=== PATIENT | female | born 1970 | race Caucasian/White ===

== ENCOUNTER → 2020-11-06 | Outpatient (CLI) | payer OTHER | LOC: LAB 11:29 | PROVIDERS: ATTEND Orthopaedic Surgery Sports Medicine | DX: Z01.812 Encounter for preprocedural laboratory examination (principal); Z20.822 Contact with and (suspected) exposure to COVID-19 ==

== ENCOUNTER 2020-11-08 07:49 | Day surgery (SDC) | payer OTHER ==
[~2020-11-08] VITALS: Ht 177.8 cm; Wt 93.0 kg
--- NOTE | 2020-11-08 09:20 | EKG ---
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 11/08/20919 2 2 Elijah Deluna MD, FACC /EPI
[2020-11-08 09:39] VITALS: BP 194/112
== END 2020-11-08 09:39 | disposition home or self-care (01) ==
LOC: OR 07:49 → TBA 07:50 → OR 09:12
PROVIDERS: ATTEND Orthopaedic Surgery Sports Medicine
DX: M25.551 Pain in right hip (principal); Z53.8 Procedure and treatment not carried out for other reasons; K21.9 Gastro-esophageal reflux disease without esophagitis; Z87.442 Personal history of urinary calculi; Z90.49 Acquired absence of other specified parts of digestive tract; Z98.890 Other specified postprocedural states; Z79.899 Other long term (current) drug therapy

== ENCOUNTER → 2021-01-11 | Outpatient (CLI) | payer OTHER ==
[~2021-01-11] MED LIST: ADVIL200 M1 PO; HYDROCHLOROTHIA25 M1 PO; PAROXETINE HCL20 MG PO; TYLENOL325 M1 PO
== END ==
LOC: LAB 09:36
PROVIDERS: ATTEND Orthopaedic Surgery Sports Medicine
DX: Z01.812 Encounter for preprocedural laboratory examination (principal); Z20.822 Contact with and (suspected) exposure to COVID-19

== ENCOUNTER → 2021-01-15 | Day surgery (SDC) | payer OTHER ==
[~2021-01-15] VITALS: Ht 175.3 cm; Wt 103.4 kg
[2021-01-15 11:20] LABS: CALCIUM 9.6 mg/dL (8.5-10.1); CREATININE 1.1 mg/dL (0.6-1.0); POTASSIUM 3.5 mmol/L (3.5-5.1)
[2021-01-15 11:53] VITALS: BP 161/102
--- NOTE | 2021-01-17 07:24 | O ---
[facility] [place] [address] OPERATIVE REPORT Name: PANKAJ EGAN Dillon Room #: REG [facility].#: [id number] Admission: 01/15/21 Attend Phys: Mikal Garcia MD Discharge: Date of : 70 Report #: [id number] THIS REPORT FOR: cc: Park Carmen Mischelle RNP McCabe, Michael P. MD ~ DATE OF SERVICE: 01/15/2021 SERVICE: Orthopedics. FACILITY: [facility]. SURGEON: Mikal Garcia MD STORE HAND: Zora Wood NP. INDICATION FOR STORE HAND: Extremity positioning, suture management, arthroscope management, assistance with repair. PREOPERATIVE DIAGNOSES: 1. Work-related injury to right hip. 2. Right hip labral tear (secondary to work-related injury). 3. Symptomatic right hip impingement (secondary to above work-related injury). 4. 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 POSTOPERATIVE DIAGNOSES: 1. Work-related injury to right hip. 2. Right hip labral tear (secondary to work-related injury). 3. Symptomatic right hip impingement (secondary to above work-related injury). 4. 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 PROCEDURES: 1. Right hip arthroscopic labral repair. 2. Right hip arthroscopic Cam osteochondroplasty. 3. Right hip arthroscopic subspine decompression. 4. Right hip arthroscopic chondroplasty. COMPLICATIONS: None. DRAINS: None. SPECIMENS: None. ANESTHESIA: General with regional. [facility] [address] [place] [address] OPERATIVE REPORT Name: PANKAJ EGAN Room #: REG [facility].#: [id number] Admission: 01/15/21 Attend Phys: Mikal Garcia MD Discharge: Date of : 70 Report #: [id number] FINDINGS: 1. Fully detached anterior labral tear repaired with five anchors total: James CinchLock suture anchor x 4, James NanoTack anchor with tape x 1. 2. 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 3. Chronically partially torn ligamentum teres treated with debridement. 4. Prominent anterior inferior iliac spine causing extraarticular impingement treated with subspine decompression. 5. Slveh-gs-xvhtsylz sized Cam deformity treated with Cam osteoplasty. 6. Capsular repair with #2 Vicryl x 4. HISTORY: The patient is a 50-year-old female who sustained a work injury that resulted in significant right hip pain. We had a long discussion preoperatively as she does have baseline preexisting acetabular dysplasia. However, she had evidence on the imaging of a detached anterior labral tear and they were examined. History was consistent with this as well. There were suggestion of some rim chondromalacia, but we felt that given the acuity of onset of her symptoms and the exam as well as the imaging that it was reasonable to proceed with treatment of a symptomatic impingement in labral tear recognizing that should she develop osteoarthritis in the future. This would be secondary to the increase stresses that correspond with acetabular dysplasia, which was as stated a preexisting condition. She understood this and was in agreement and wished to move forward with definitive surgical treatment. The risks, benefits, alternatives, and indication of surgery discussed with her in detail. Risks include but not limited to pain, bleeding, infection, injury nerves or blood vessels, persistent pain despite surgical intervention, failure of any repairs, progression of preexisting chondral injury, stiffness, need for further surgery as well as complications such as stroke, heart attack, pulmonary complications, thromboembolic disease and . Despite these risks, she wished to proceed. We also had a discussion about her blood pressure as she had to have her procedure postponed one time because of significant hypertension, which she was able to get in better management and she will continue to pursue this through her medical doctor. PROCEDURE IN DETAIL: After right lower extremity was correctly identified in the preoperative holding area as the operative extremity, the patient underwent regional nerve block was then taken to the operating room where general anesthesia was induced without complications. She was padded appropriately. Prophylactic antibiotics were administered at appropriate time. C-arm was used to identify the extended Cam deformity, which was in a small arc of about the 10-degree position to the 60-degree position and had maximal alpha angle of about 60 degrees. Right hip was then prepped and draped in standard sterile fashion. Timeout procedure performed. Traction was applied. Standard anterolateral viewing portal was established followed by anteromedial working portal. Diagnostic arthroscopy was performed. There was some capsular [address] [address] OPERATIVE REPORT Name: PANKAJ EGAN Room #: REG [facility] Christopher#: [id number] Admission: 01/15/21 Attend Phys: Mikal Garcia MD Discharge: Date of : 70 Report #: [id number] erythema, which will be the indication for continuous passive motion machine usage postoperatively in order to reduce the risk of scarring and adhesions. Capsular preservation was performed and pursued due to her history of acetabular dysplasia. The capsule was reflected off the dorsal side of the labrum. As soon as the camera was placed in the hip, we could see the fully detached anterior labral tear and there was an intrasubstance cyst, which was later debrided. The acetabular rim was exposed and then gently abraded to create a fresh bleeding surface for labral re-fixation. The subspine region was decompressed with a bur in a standard fashion. She did have an extraarticular component of impingement and this corresponded with some bruising on the labrum. Care was taken to avoid any rim resection as she has no over coverage specifically and this was strictly an extraarticular subspine impingement. After this was completed, the C-arm fluoroscopy was used to assist in performing a labral repair. A total of 5 anchors were utilized. We placed the first two anchors with cerclage sutures anteriorly working laterally and then a third anchor as well and the labrum was elevated and reduced into its anatomic position at this point, but the corners were still mobile and so continued the soft tissue dissection around the medial side and then placed a James NanoTack anchor with tape and then this securely repaired the more anterior medial portion of the labrum. The shaver and the cautery were used to complete the chondroplasty at the chondral labral junction working from medial to lateral. We then switched the viewing portal anterior and the working portal lateral and placed a fourth CinchLock anchor, which provided good compression of the lateral aspect of the labrum and then completed the chondroplasty at this point. Note that cautery and shaver were used to debride the partially torn ligamentum teres, which was debrided with the shaver successfully. We then let traction down, flexed the hip up, turned our attention towards the peripheral compartment. Transverse capsulotomy was extended down the neck slightly in a T fashion allowing access to the entire Cam deformity. Then, the bur was used to perform a Cam decompression in standard fashion. We lavaged the bony debris out of the hip and removed the instruments, brought C-arm in and assessed the resection. I was happy with the appearance of the Cam osteoplasty at this point and placed the instruments back in the hip and then closed the capsulotomy with a total of four #2 Vicryl sutures. Instruments were removed. Portal sites were closed. Sterile dressing was applied. The patient was awakened from anesthesia and taken to recovery room in stable condition. No complications. All counts were correct. <ELECTRONICALLY SIGNED> By: Mikal Garcia MD 01/17/21 0724 [id number] Mikal Garcia MD /nt
== END | disposition home or self-care (01) ==
LOC: OR 09:36
PROVIDERS: ATTEND Orthopaedic Surgery Sports Medicine
DX: S79.911A Unspecified injury of right hip, initial encounter (principal); S73.101A Unspecified sprain of right hip, initial encounter; M94.251 Chondromalacia, right hip; M25.851 Other specified joint disorders, right hip; Q65.89 Other specified congenital deformities of hip; I10 Essential (primary) hypertension; F32.9 Major depressive disorder, single episode, unspecified; F41.9 Anxiety disorder, unspecified; K21.9 Gastro-esophageal reflux disease without esophagitis; Z98.890 Other specified postprocedural states; Z79.899 Other long term (current) drug therapy; Z90.49 Acquired absence of other specified parts of digestive tract; Y99.0 Civilian activity done for income or pay; Y93.89 Activity, other specified; Y92.89 Other specified places as the place of occurrence of the external cause
CPT/HCPCS: 50010; 50101; 50386; 51320; 51538; 52304; 56524; 56527; 57092; 57103; 58273; 58274; 58557; 58558; 58559; 58561; 58562; 58563; 58564; 58607; 58608; 58638; 62110; 62900; 64039; 70005